=== PATIENT | female | born 1990 | race Caucasian/White ===

== ENCOUNTER → 2018-11-22 | Outpatient (CLI) | payer OTHER, SELFPAY ==
[2018-11-22 20:25] LABS: Chlamydia Trachomatis by PCR Negative (Negative); Neisserai gonorrhoeae by PCR Negative (Negative); Probe Check PASS; Sample Adequacy Control PASS; Specimen Processing Control PASS
[2018-11-28 11:03] LABS: HPV Reflexed? NOT INDICATED
== END | disposition home or self-care (01) ==
PROVIDERS: Referring Provider Obstetrics & Gynecology; Visit Provider Obstetrics & Gynecology
DX: Z11.3 Encounter for screening for infections with a predominantly sexual mode of transmission (principal); Z12.4 Encounter for screening for malignant neoplasm of cervix
CPT/HCPCS: 87491; 87591; 88175; G0145

== ENCOUNTER → 2018-12-11 | Outpatient (CLI) | payer OTHER, SELFPAY ==
[2018-12-11 17:38] LABS: Absolute Neutrophil Count 4.2 X10^3/uL (2.0-7.7); Basophil# 0.01 X10^3/uL; Basophil% 0.2 % (0-1); Eosinophil# 0.04 X10^3/uL; Eosinophils% 0.6 % (0-5); Hematocrit 39.8 % (37-47); Hemoglobin 13.5 g/dl (12.0-15.0); Lymphocyte % 25.1 % (19-41); Mean Corp Hgb Conc 33.9 g/gl (32-36); Mean Corpuscular Hgb 25.8 pg (27.0-32.0); Mean Corpuscular Volume 76.1 fL (81-99); Mean Platelet Vol. 11.8 fl (6.2-12.0); Monocyte% 7.8 % (0-10); Neutrophil # 4.22 X10^3/uL (2.7-7.7); Neutrophil % 66.1 % (47-70); Platelet Count 170 K/mm3 (150-450); RBC Distribution Width SD 38.4 fl (35.1-43.9); Red Blood Count 5.23 M/mm3 (4.2-5.4); White Blood Count 6.4 K/mm3 (4.4-11.0)
[2018-12-11 17:42] LABS: Color, Urine Yellow (Yellow); Glucose, Dipstick Normal (Normal); Ketone-Dipstick Negative (Negative); Leukocyte Esterase-Dipstick Negative /ul (Negative); Nitrite-Dipstick Negative (Negative); Occult Blood-Urine Negative /ul (Negative); Protein-Dipstick Negative (Negative); Urine Bilirubin Dipstick Negative (Negative); Urine Clarity Clear (Clear); Urine Urobilinogen Normal (Normal)
[2018-12-11 17:59] LABS: Amphetamine Urine VISTA NEGATIVE (<1000 ng/mL); Barbiturate Urine VISTA NEGATIVE (< 200 ng/mL); Benzodiazepine Urine VISTA NEGATIVE (< 200 ng/mL); Cocaine Urine VISTA NEGATIVE (< 300 ng/mL); Ecstacy Urine VISTA NEGATIVE (< 500 ng/mL); Methadone Urine VISTA NEGATIVE (< 300 ng/mL); PCP Urine VISTA NEGATIVE (< 25 ng/mL); THC Urine VISTA NEGATIVE (< 50 ng/mL); Vista UDS pH Range 6
[2018-12-11 18:00] LABS: COTININE Drug Screen Negative (<200 ng/mL); POSITIVE COUNT NO; POSITIVE DIFFERENTIAL NO; POSITIVE MORPHOLOGY NO
[2018-12-11 18:17] LABS: Thyroid Stim Hormone (TSH) 1.39 uIU/mL (0.358-3.74)
[2018-12-11 18:46] LABS: HIV - WCH Non-Reactive (Nonreactive); Rubella IgG 17.1 IU/mL
[2018-12-13 15:50] LABS: HEPATITIS B SURFACE AG Negative (Negative); Hep C Antibodies <0.1 s/co ratio (0.0-0.9)
[2018-12-14 02:05] LABS: Prenatal RPR NONREACTIVE (NONREACTIVE)
== END | disposition home or self-care (01) ==
LOC: WOBLAB 16:26
PROVIDERS: Visit Provider Obstetrics & Gynecology
DX: Z34.81 Encounter for supervision of other normal pregnancy, first trimester (principal)
CPT/HCPCS: 36415; 80307; 81002; 84443; 85025; 86703; 86762; 86803; 87340

== ENCOUNTER → 2019-04-02 | Outpatient (CLI) | payer OTHER, SELFPAY ==
[2019-04-02 13:44] LABS: Hematocrit 37.9 % (37-47); Hemoglobin 12.2 g/dL (12.0-15.0); Mean Corp Hgb Conc 32.2 g/dL (32-36); Mean Corpuscular Hgb 26.9 pg (27.0-32.0); Mean Corpuscular Volume 83.5 fL (81-99); Mean Platelet Vol. 11.7 fl (6.2-12.0); Platelet Count 137 K/mm3 (150-450); RBC Distribution Width CV 13.6 % (11.6-14.6); RBC Distribution Width SD 41.5 fl (35.1-43.9); Red Blood Count 4.54 M/mm3 (4.2-5.4)
[2019-04-02 13:46] LABS: Glucose Challenge Gest 1H 50g 102 mg/dL (70-140)
== END | disposition home or self-care (01) ==
LOC: LABSPEC 11:43
PROVIDERS: Visit Provider Obstetrics & Gynecology
DX: Z34.83 Encounter for supervision of other normal pregnancy, third trimester (principal)
CPT/HCPCS: 36415; 82950; 85027

== ENCOUNTER → 2019-05-01 | Outpatient (CLI) | payer OTHER, SELFPAY ==
[2019-05-01 14:24] LABS: Mean Corp Hgb Conc 32.4 g/dL (32-36); Mean Corpuscular Volume 83.1 fL (81-99); Mean Platelet Vol. 11.8 fl (6.2-12.0); Platelet Count 138 K/mm3 (150-450); RBC Distribution Width CV 13.4 % (11.6-14.6); RBC Distribution Width SD 40.2 fl (35.1-43.9); Red Blood Count 4.45 M/mm3 (4.2-5.4); White Blood Count 8.5 K/mm3 (4.4-11.0)
== END | disposition home or self-care (01) ==
LOC: WOBLAB 11:35
PROVIDERS: Visit Provider Obstetrics & Gynecology
DX: D69.6 Thrombocytopenia, unspecified (principal)
CPT/HCPCS: 36415; 85027

== ENCOUNTER → 2019-05-22 | Outpatient (CLI) | payer OTHER, SELFPAY | END | disposition home or self-care (01) | LOC: LABSPEC 14:16 | PROVIDERS: Visit Provider Obstetrics & Gynecology | DX: Z36.85 Encounter for antenatal screening for Streptococcus B (principal) | CPT/HCPCS: 87081 ==

== ENCOUNTER → 2019-06-03 | Outpatient (CLI) | payer OTHER, SELFPAY ==
[2019-06-03 12:07] LABS: Hematocrit 36.8 % (37-47); Hemoglobin 11.7 g/dL (12.0-15.0); Mean Corp Hgb Conc 31.8 g/dL (32-36); Mean Corpuscular Hgb 26.2 pg (27.0-32.0); Mean Corpuscular Volume 82.5 fL (81-99); Mean Platelet Vol. 11.8 fl (6.2-12.0); Platelet Count 133 K/mm3 (150-450); RBC Distribution Width CV 13.9 % (11.6-14.6); RBC Distribution Width SD 40.9 fl (35.1-43.9); Red Blood Count 4.46 M/mm3 (4.2-5.4); White Blood Count 8.4 K/mm3 (4.4-11.0)
[2019-06-03 12:14] LABS: Prothrombin Time (Protime)PT. 13.1 SECONDS (11.7-14.9)
[2019-06-03 12:15] LABS: Partial Thromboplast Time 27.5 Seconds (24.1-36.2)
[2019-06-03 12:27] LABS: AST(SGOT) 15 U/L (15-37); Alanine Aminotransfer ALT/SGPT 17 U/L (13-56); Creatinine, Serum 0.56 mg/dL (0.55-1.02); EST Glomerular Filtration Rate 138 mL/min (>60); Est Glom Filt Rate - Afr Amer 167 mL/min (>60); Uric Acid 2.9 mg/dL (2.6-6.0)
[2019-06-03 12:30] LABS: Protein, Urine (Random) 10.7 mg/dL (<11.9); Protein:Creat Ratio 162 mg/g CRE (0-200)
== END | disposition home or self-care (01) ==
PROVIDERS: Visit Provider Obstetrics & Gynecology
DX: O13.9 Gestational [pregnancy-induced] hypertension without significant proteinuria, unspecified trimester (principal); Z3A.00 Weeks of gestation of pregnancy not specified
CPT/HCPCS: 36415; 82565; 82570; 84156; 84450; 84460; 84550; 85027; 85610; 85730

== ENCOUNTER → 2019-06-05 | Outpatient (CLI) | payer OTHER, SELFPAY ==
[2019-06-05 08:56] LABS: 24HR. UA Prot. Total Volume 2950 mL; Urine Protein (24 Hour) 10.2 mg/dL (<11.9)
== END | disposition home or self-care (01) ==
LOC: LAB.FUTURE 06-07 12:00
PROVIDERS: Visit Provider Obstetrics & Gynecology
DX: O13.9 Gestational [pregnancy-induced] hypertension without significant proteinuria, unspecified trimester (principal); Z3A.00 Weeks of gestation of pregnancy not specified
CPT/HCPCS: 81050

== ENCOUNTER 2019-06-25 14:15 | Inpatient (IN) | payer OTHER, SELFPAY ==
[2019-06-25 14:37] VITALS: BMI 44.3
[2019-06-25] MEDS: 0.9% Saline Lock 10 ML Syringe IV (15:00)
[2019-06-25] MEDS: miSOPROStol 25 MCG TABLET PO ×3 (15:21→23:43)
[2019-06-25 15:27] LABS: Absolute Lymphocyte Count 1.34 X10^3/uL (0.83-4.51); Absolute Neutrophil Count 5.7 X10^3/uL (2.0-7.7); Basophil# 0.02 X10^3/uL; Basophil% 0.3 % (0-1); Eosinophil# 0.03 X10^3/uL; Eosinophils% 0.4 % (0-5); Hemoglobin 11.9 g/dL (12.0-15.0); Lymphocyte # 1.34 X10^3/ul (4.0); Lymphocyte % 17.2 % (19-41); Mean Corp Hgb Conc 33.1 g/dL (32-36); Mean Corpuscular Hgb 26.6 pg (27.0-32.0); Mean Corpuscular Volume 80.4 fL (81-99); Mean Platelet Vol. 11.8 fl (6.2-12.0); Monocyte# 0.62 X10^3/uL; NRBC Flagged by Analyzer 0 % (0-5); Neutrophil % 73.1 % (47-70); Platelet Count 135 K/mm3 (150-450); RBC Distribution Width CV 14.2 % (11.6-14.6); RBC Distribution Width SD 41.5 fl (35.1-43.9); Red Blood Count 4.48 M/mm3 (4.2-5.4); White Blood Count 7.8 K/mm3 (4.4-11.0)
--- NOTE | 2019-06-25 15:41 | HP.PCM_ITS ---
History and Physical Date of Admission: 06/25/19 OB HISTORY AND PHYSICAL EXAMINATION History of this : 28 yo female Ab0 with EDC 06/18/2019 by 13 weeks 0 days Ultrasound, presents to Labor and Delivery for induction of labor postdates with unfavorable cervix. care remarkable for: GBS negative. Rubella immune. A positive. 1.) Mild thrombocytopenia. Plts 137 K at 29 wks 135K on admission to [facility] for labor Pertinent Past Medical History: Breast/Ovarian/Colon Cancers - Denies Infections - Chicken pox, vaccinated for chicken pox and no HPV Vaccinated for Hepatitis B. Illnesses - none Accidents - None History of Abnormal PAPS - Denies Hospitalizations - [facility], hernia surgery as child SURGICAL HISTORY: 1. hernia surgery as child 2. skin grafts 2001 3. [place] Teeth Removal MENSTRUAL HISTORY: LMP Known?- Definite/Duration - 3-4 days, Regularity - Regular, Frequency - monthly days, LMP - 09/11/18, Age Onset Menarche - 13 PAST PREGNANCIES: Total Pregnancies - 1; Full Term Pregnancies - 0; Premature - 0; Abortions, Induced - 0; Abortions, Spontaneous - 0; Ectopics - 0; Multiple Births - 0; Living Children - 0 FAMILY HISTORY: Maternal Grandparent - Hypertension; Maternal Grandparent - Asthma; Maternal Grandparent - Unknown Disease; SOCIAL HISTORY: Alcohol Use - drinks occasionally not while Smoking - denies smoking Diet - no special diet Lifestyle - Exercise - minimal Seat Belt Use - always Employer - [employer] Job Description - [employer] Illicit Drug Use - denies use of street drugs Sexual Activity - Residence - Own Hours Worked - FT Spouse-Sig Other Name - Jose Luis Spouse-Sig Other Occupation - [employer] - Allergies: No Known Drug Allergies Medications: During - 28 mg-800 mcg tablet; Tums 300 mg (750 mg) chewable tablet Review of Systems: Non-contributory PHYSICAL EXAMINATION General Appearance: 28 yo female in no acute distress Vital Signs: AF, VSS Heart: RRR without rubs or gallops Lungs: Regular rate and rhythm Breasts: deferred Abdomen: gravid Cervix: 1-2/thick/high/anterior Presentation: cephalic Size: AGA -- EFW on sono today: 6# 11 oz. KENDRA 12 cm. Movement: present Heart: 130-140s avg variability Accels Category I tracing, very irregular to no UCs. Impression /Plan: Intrauterine . Postdates 41 wk induction of labor. Counselled re R,B,A of induction. Aware of potential for intolerance of labor or CPD or failure to progress as indications for C section. Short stature, mother with hx of all C sections. Will begin with Cytotec induction. Advised may require Fole y bulb with Pitocin as next step. Amniotomy prn. Watch progress, descent and tolerance of labor. . All questions answered and admitted for induction of labor.
[2019-06-25] MEDS: Acetaminophen 325 MG Tablet PO ×2 (18:49→23:45)
--- NOTE | 2019-06-26 | PLAC_PTH ---
PATIENT: MARYANN BULLOCK LOC: [facility] U#:[id number] AGE/SX: 28/F ROOM: WP018 RE06/25/[address]: Dr. Lisa Mays MD : 1990 BED: 1 DIS: 06/28/2019 SPEC #: [id number] RECD: 06/27/19 10:34 STATUS: JANNETH REQ #: [id number] MEGAN: 06/26/19 00:[address]: Lisa Ordaz DEPT: SURGICAL PATHOLOGY RECD BY: Fidencio Do ENTERED: 06/27/19 10:34 SP TYPE: PLACENTA OTHR DR: No Primary Care Phys Tissues: Placenta, NOS Procedures: Surgery Specimen Level V HEADER OPERATION: Vaginal delivery PRE-OP DIAGNOSIS: , prolonged rupture of membranes TISSUE SUBMITTED: Placenta MICROSCOPIC DIAGNOSIS Sewell placenta (496 g) Umbilical cord - trivascular without inflammation. Placental membranes - no pathologic change. Placental disc - foci of organizing intraparenchymal hemorrhage, mild Lilliana-Raheel change and mildly increased intraparenchymal fibrin plaque. AM:jet 07/01/19 MICROSCOPIC DESCRIPTION Slides are reviewed. GROSS DESCRIPTION SPECIMEN: PLACENTA / CLINICAL INFORMATION: A. Weight: 3.317 kg B. Gestational Age: 41 weeks C. Sex: Male PLACENTAL WEIGHT (POST FIXATION): PLACENTAL DIMENSIONS: 17 x 16 x 3 cm PLACENTAL SHAPE: Usual ovoid PLACENTAL WEIGHT FOR GESTATIONAL AGE: Within 10-99th percentile:496g MEMBRANES - Present A. Insertion: Marginal B. Site of rupture from edge: at edge of placental disc C. Color of membrane: Soria-holliday D. Abnormalities: None UMBILICAL CORD - Present A. Color: Soria-holliday B. Insertion: Marginal C. Length: eccentric, 25 cm D. Diameter: 1.2 cm E. Number of vessels: Three F. Abnormalities: None PLACENTAL DISC - Present A. Color of surface: Soria-holliday B. surface abnormalities: None C. Maternal cotyledons: Intact with minimal tears D. Attached retro placental clot: No clot E. Cut surface: Dark red and spongy with two soria-white lesions measuring in size from 1 cm to 2 cm F. Separate clot: Present, 9 x 3 x 2 cm SECTIONS SUBMITTED: 1. Umbilical cord ( end inked) 2. Membrane roll 3. Lesions. 4. Lesions. 5. Uninvolved placental disc AM:jet 06/28/19 TC: 5 CPT: 44941
--- NOTE | 2019-06-26 03:13 | PCM.PN.BLA ---
Progress Note LABOR PROGRESS NOTE. Late entry from 06/25/19 at approx 7:30 pm Comfortable in bed watching movie. States occasional cramp noted. No c/o AVSS S/P second dose Cytotec with cervix at 1 cm / -3 / anterior per RN EFM 130-140s avg variability. Category I tracing UCs irregular A/P: 41 wk induction. Strong family hx of all C section deliveries. Short stature. Unfavorable cervix. Cytotec to possible Hogue bulb and AROM, pitocin planned. Continue induction for postdates
--- NOTE | 2019-06-26 03:16 | PCM.PN.BLA ---
Progress Note LABOR PROGRESS NOTE 41 1/7 wk induction postdated UCs q 1-3 min Per RN note, pt sleeping through UCs. EFM 120-130s with min to avg variability Accels to 150s Category I tracing A/P: 41 1/7 wk induction postdates. Plan for exam, AROM if able and IUPC, Pitocin vs Hogue bulb Pitocin in AM
[2019-06-26] MEDS: miSOPROStol 25 MCG TABLET PO (03:29)
[2019-06-26] MEDS: 0.9% Saline Lock 10 ML Syringe IV (06:51)
[2019-06-26] MEDS: Acetaminophen 325 MG Tablet PO (07:50)
[2019-06-26] MEDS: Lactated Ringers 1,000 ML 50 ML IV (08:17)
[2019-06-26] MEDS: Oxytocin 30 units/NS 500 ml 30 UNITS/500 ML IV.SOLN IV (08:26)
--- NOTE | 2019-06-26 08:43 | PCM.PN.BLA ---
Progress Note LABOR PROGRESS NOTE Last dose of Cytotec at 4 am. Due for next, but will cancel that. Able to sleep through the night with UCs. Feeling only a few strongly. AVSS EFM: 130-140s avg variability. Accels. UCs q 2-3 min CX: 09/17/ high anterior mod consistency. A/P: 41 1/7 wk Induction. S/P Cytotec and now to Hogue bulb and pitocin Continue labor. Watch tolerance and for progress. AROM as able. High chance of C Section with family hx and her own body habitus.
[2019-06-26] MEDS: Nalbuphine 10 MG/ML Ampul IV (11:56)
--- NOTE | 2019-06-26 12:34 | PCM.PN.BLA ---
Progress Note LABOR PROGRESS NOTE Hogue fell out, SROM then with BBOW. Epidural placed. Comfortable and sleeping with epidural Multiple family members in room, talking AVSS Pitocin at 6 mIU/min IUPC and scalp lead placed after SROM IFM : 130-140s avg variability Accels noted. Category I tracing UCs q 1-5 min coupling, spacing CX: 4 / 70/-2 SROM A/P: 41 1/7 wk EGA Induction of labor. Cytotec, Hogue bulb, pitocin with progress noted. Continue labor induction Watch progress, descent.
[2019-06-26] MEDS: Ondansetron 4 MG/2 ML Vial IV (14:50)
[2019-06-26] MEDS: Lactated Ringers 500 ML 999 ML IV (17:15)
[2019-06-26 18:05] LABS: Absolute Lymphocyte Count 0.99 X10^3/uL (0.83-4.51); Basophil# 0.04 X10^3/uL; Basophil% 0.3 % (0-1); Hematocrit 37.7 % (37-47); Hemoglobin 12.3 g/dL (12.0-15.0); Lymphocyte # 0.99 X10^3/ul (4.0); Lymphocyte % 6.6 % (19-41); Mean Corp Hgb Conc 32.6 g/dL (32-36); Mean Corpuscular Hgb 26.1 pg (27.0-32.0); Mean Corpuscular Volume 79.9 fL (81-99); Mean Platelet Vol. 11.1 fl (6.2-12.0); Monocyte# 0.93 X10^3/uL; Monocyte% 6.2 % (0-10); NRBC Flagged by Analyzer 0 % (0-5); Neutrophil # 12.97 X10^3/uL (2.7-7.7); Neutrophil % 86.4 % (47-70); Platelet Count 125 K/mm3 (150-450); RBC Distribution Width CV 13.9 % (11.6-14.6); RBC Distribution Width SD 40.6 fl (35.1-43.9); Red Blood Count 4.72 M/mm3 (4.2-5.4)
[2019-06-26] MEDS: fentaNYL-bupivacaine (epidural) 100 ML BAG EPIDURAL (18:38)
[2019-06-26] MEDS: Oxytocin 30 units/NS 500 ml 30 UNITS/500 ML IV.SOLN 334 UNITS IV (20:27)
--- NOTE | 2019-06-26 21:52 | PCM.OPRPT ---
Problem List (1) 41 weeks gestation of Status: Acute (2) (spontaneous vaginal delivery) Status: Acute Vaginal Delivery Maternal Presentation: Medically Indicated Induction Method of Induction: Pitocin, Hogue Bulb, Cytotec Medical Reason for Induction: Post term Amniotic Membrane Rupture Type: Spontaneous Rupture of Membrane time: 06/26/19 1124h Amniotic Fluid Description: Clear Final FELTON: 06/18/19 Final FELTON Source: US <20 weeks Gestational age: 41 Weeks and 1 Days Date of Procedure: 06/26/19 Pre-Operative Diagnosis: 41 1/7wga Post-Operative Diagnosis: 41 1/7wga Surgery/ Procedure Performed: Spontaneous Vaginal Delivery Anesthesiologist: Jose Luis Gutierrez Type of Anesthesia: Epidural Description of Procedure: Patient was FD/+4. Pushed to deliver a vigorous male infant with ease. was placed on maternal abdomen and further attended by nursery personnel. The cord was doubly clamped and cut. Placenta delivered spontaneously and appeared intact on inspection. A second degree perineal laceration was repaired with 3-0 Vicryl Rapide following local administration of 5cc of 1% lidocaine for patient discomfort. Sponge counts correct x 2. Presentation: Vertex Placental Delivery Description: Spontaneous Placenta Disposition: Sent to Pathology Cord Vessel Description: 3 Vessels Cord Entanglement: None Estimated Blood Loss: 300 ml A gender: Male (1 minute): 8 (5 minute): 9 Episiotomy Description: None Laceration: Midline, 2nd degree Medications given after delivery: IV Pitocin Complications: None
--- NOTE | 2019-06-26 22:07 | DCINST_ITS ---
Discharge Diet: No Restrictions Discharge Activity: Return to Normal Activity, May Shower, May Take a Tub Bath May resume sexual activity in: 6 weeks Lifting Restrictions: 10lb Suture Line Care: Avoid Pulling/Pushing Cleanse incision/area with: Soap & Water Additional Instructions: If you experience any of the following, contact your healthcare provider. * Bleeding that soaks a pad every hour for 2 hours * Fever 100.4 or higher * Unrelieved incision or abdominal pain * Swelling, redness, discharge or bleeding from your incision or episiotomy site * Your incision begins to separate * Problems urinating (including inability to urinate or burning while urinating). * Visual changes * Severe headache * Flu-like symptoms * Pain or redness in one of both of your breasts * Pain, warmth, tenderness or swelling in your legs, especially the calf area * Frequent nausea and vomiting * Symptoms of depression or anxiety If you experience any of the following, call 911 or go to the nearest Emergency Room. * Chest pain * Problems breathing * Seizure activity * Partial or complete paralysis of a body part, slurred speech, weakness or drooping of the face, or a sudden inability to walk or hold your balance Allergies/Adverse Reactions: Allergies No Known Allergies Allergy (Verified 06/25/19 14:37) Medications to take at Discharge Pnv No.103/Folic/Om3s/Fish Oil [ Gummies] 2 ea PO DAILY 06/25/19 Docusate Sodium [Colace] 100 mg PO BID PRN PRN #60 cap 06/26/19 Ibuprofen 600 mg PO TID PRN #30 tab 06/26/19 The following prescriptions were given: Docusate Sodium [Colace] 100 mg PO BID PRN PRN #60 cap PRN Reason: Constipation Transmission Status: Pending to [facility] #[facility] Ibuprofen 600 mg PO TID PRN #30 tab PRN Reason: Pain Or Fever Transmission Status: Pending to [facility] #[facility] Please Follow Up With: Lisa Edwards MD When: 6 weeks Primary Care Physician: Care Physician,No Primary [Primary Care Provider] - Test Results: Test results from this visit will be discussed in further detail at your follow- up appointment, if applicable.
[2019-06-27] VITALS (7 sets, daily range): BP systolic 108–125; BP diastolic 58–71; PULSE 80–88; RESP 16–18; TEMP 36–37.3; O2SAT 98
[2019-06-27 04:05] LABS: Pathology Specimen OB SEE PATHOLOGY REPORT
[2019-06-27] MEDS: Acetaminophen 325 MG Tablet PO ×3 (05:19→19:59)
--- NOTE | 2019-06-27 08:17 | PCM.PN.OB ---
Patient Problems: Active and Suspected Problems 41 weeks gestation of (Acute) (spontaneous vaginal delivery) (Acute) Subjective: PPD#1 Doing well. Plans to nurse. Minimal pain. Happy with delivery and her baby. - Physical Exam Vitals/I&O's: Vital Signs Temp Pulse Resp BP 99.1 F 88 18 125/71 H 06/27/19 05:15 06/27/19 05:15 06/27/19 05:15 06/27/19 05:15 Oxygen Delivery Method Room Air Weight: 102.9 kg Body Mass Index (BMI) 44.3 Intake and Output for Last 24 Hours 06/25/19 06/26/19 06/27/19 23:59 23:59 23:59 Intake Total 2600.86 / 2600.86 Output Total 1400 / 1400 1200 / 1200 Balance 1200.86 / 1200.86 -1200 / -1200 General: Alert, Oriented x3, Cooperative, No apparent distress HEENT: Atraumatic, EOMI Neck: Supple Abdomen: Soft - Fundus firm NT inferior to umbilicus Psych/Mental Status: Normal Affect Laboratory Results 06/26/19 17:20: WBC Cancelled, Corrected WBC Cancelled, RBC Cancelled, Hgb Cancelled, Hct Cancelled, MCV Cancelled, MCH Cancelled, MCHC Cancelled, RDW Std Deviation Cancelled, RDW Coeff of Alexandro Cancelled, Plt Count Cancelled, MPV Cancelled, Immature Gran % (Auto) Cancelled, Neut % (Auto) Cancelled, Lymph % (Auto) Cancelled, Duchesne % (Auto) Cancelled, Eos % (Auto) Cancelled, Baso % (Auto) Cancelled, Absolute Neuts (auto) Cancelled, Absolute Lymphs (auto) Cancelled, Total Counted Cancelled, Neutrophils % (Manual) Cancelled, Band Neutrophils % Cancelled, Lymphocytes % (Manual) Cancelled, Monocytes % (Manual) Cancelled, Eosinophils % (Manual) Cancelled, Basophils % (Manual) Cancelled, Metamyelocytes % Cancelled, Myelocytes % Cancelled, Promyelocytes % Cancelled, Blast Cells % Cancelled, Plasma Cell % (Manual) Cancelled, Other Cells % Cancelled, Nucleated RBC % Cancelled, Nucleated RBCs/100 WBC Cancelled, Differential Comment Cancelled, Diff Path Review Cancelled, Hypersegmented Neuts Cancelled, Atypical Lymphocytes Cancelled, Reactive Lymphocytes Cancelled, Smudge Cells Cancelled, Toxic Granulation Cancelled, Toxic Vacuolation Cancelled, Dohle Bodies Cancelled, Andra Rods Cancelled, Platelet Estimate Cancelled, Plt Morphology Comment Cancelled, RBC Morphology Cancelled, Polychromasia Cancelled, Hypochromasia Cancelled, Poikilocytosis Cancelled, Basophilic Stippling Cancelled, Anisocytosis Cancelled, Microcytosis Cancelled, Macrocytosis Cancelled, Spherocytes Cancelled, Sickle Cells Cancelled, Target Cells Cancelled, Tear Drop Cells Cancelled, Ovalocytes Cancelled, Stomatocytes Cancelled, Barreto-Confluence Bodies Cancelled, Blanket Cells Cancelled, Bite Cells Cancelled, Crenated Cell Cancelled, Acanthocytes (Spur) Cancelled, Rouleaux Cancelled, Schistocytes Cancelled 06/26/19 17:55: WBC 15.0 H, RBC 4.72, Hgb 12.3, Hct 37.7, MCV 79.9 L, MCH 26.1 L, MCHC 32.6, RDW Std Deviation 40.6, RDW Coeff of Alexandro 13.9, Plt Count 125 L, MPV 11.1, Immature Gran % (Auto) 0.500, Neut % (Auto) 86.4 H, Lymph % (Auto) 6.6 L, Duchesne % (Auto) 6.2, Eos % (Auto) 0.0, Baso % (Auto) 0.3, Absolute Neuts (auto) 13.0 H, Absolute Lymphs (auto) 0.99, Nucleated RBC % 0 Current Medications Acetaminophen (Tylenol) 325 - 650 mg PO Q4H PRN PRN PRN Reason: Pain Score 1-3/10 Last Admin: 06/27/19 05:19 Dose: 650 mg Documented by: Bisacodyl (Dulcolax) 10 mg RECTAL UD PRN PRN Reason: If no BM Dibucaine (Dibucaine) 1 applic TOPICAL TID PRN PRN; Protocol PRN Reason: Discomfort Hydrocortisone (Hytone) 1 applic TOPICAL TID PRN PRN; Protocol PRN Reason: Discomfort Methylergonovine Maleate (Methergine) 0.2 mg IM X1 PRN PRN Reason: Excess bleeding/uterine atony Multivit/Folic Acid/Iron (Prenatabs Fa) 1 tablet PO DAILY@1200 STEFANIA Senna/Docusate Sodium (Senokot-S, Virginie-Colace) 1 - 2 tablet PO DAILY PRN PRN PRN Reason: Constipation Simethicone (Mylicon) 80 mg PO PCHS PRN PRN Reason: Indigestion/Stomach pain Sodium Chloride () 5 - 15 ml IV UD PRN PRN Reason: SALINE FLUSH Medical Necessity - Tobacco Use Smoking Status: Never smoker Assessment/Plan All Active Problems 41 weeks gestation of (Acute) (spontaneous vaginal delivery) (Acute) PPD#1 Stable pp. Continue routine care.
[2019-06-27] MEDS: Prenatal Vits Tablet 1 TABLET PO (09:25)
[2019-06-27] MEDS: Ibuprofen 600 MG Tablet PO ×2 (09:25→18:39)
[2019-06-27] MEDS: Senna/Docusate Sodium 1 Tablet PO ×2 (15:59→19:59)
[2019-06-28 02:00] VITALS: BP 117/79; PULSE 77; RESP 16; TEMP 36.6; O2SAT 97
--- NOTE | 2019-06-28 08:24 | PCM.PN.OB ---
Patient Problems: Active and Suspected Problems 41 weeks gestation of (Acute) (spontaneous vaginal delivery) (Acute) Subjective: PPD#2 Doing well. Baby circumcision done and has bili levels to do yet Minimal pain at perineum. Nursing well. Dischg home today. RTO in 6 wk for pp check. Objective: Sitting up semi-recumbent on couch. Eating breakfast - Physical Exam Vitals/I&O's: Vital Signs Temp Pulse Resp BP Pulse Ox 97.8 F 77 16 117/79 97 06/28/19 02:00 06/28/19 02:00 06/28/19 02:00 06/28/19 02:00 06/28/19 02:00 Oxygen Delivery Method Room Air Weight: 102.9 kg Body Mass Index (BMI) 44.3 Intake and Output for Last 24 Hours 06/26/19 06/27/19 06/28/19 23:59 23:59 23:59 Intake Total 2600.86 / 2600.86 Output Total 1400 / 1400 1200 / 1200 Balance 1200.86 / 1200.86 -1200 / -1200 General: Alert, Oriented x3, Cooperative, No apparent distress HEENT: Atraumatic, EOMI Neck: Supple Neurological: Cranial nerves II-XII grossly intact Psych/Mental Status: Normal Affect Current Medications Acetaminophen (Tylenol) 325 - 650 mg PO Q4H PRN PRN PRN Reason: Pain Score 1-3/10 Last Admin: 06/27/19 19:59 Dose: 650 mg Documented by: Bisacodyl (Dulcolax) 10 mg RECTAL UD PRN PRN Reason: If no BM Dibucaine (Dibucaine) 1 applic TOPICAL TID PRN PRN; Protocol PRN Reason: Discomfort Hydrocortisone (Hytone) 1 applic TOPICAL TID PRN PRN; Protocol PRN Reason: Discomfort Ibuprofen (Motrin) 600 mg PO Q6H PRN PRN PRN Reason: Pain Score 1-10/10 Last Admin: 06/27/19 18:39 Dose: 600 mg Documented by: Methylergonovine Maleate (Methergine) 0.2 mg IM X1 PRN PRN Reason: Excess bleeding/uterine atony Multivit/Folic Acid/Iron (Prenatabs Fa) 1 tablet PO DAILY@1200 STEFANIA Last Admin: 06/27/19 09:25 Dose: 1 tablet Documented by: Senna/Docusate Sodium (Senokot-S, Virginie-Colace) 1 - 2 tablet PO DAILY PRN PRN PRN Reason: Constipation Last Admin: 06/27/19 19:59 Dose: 1 tablet Documented by: Simethicone (Mylicon) 80 mg PO PCHS PRN PRN Reason: Indigestion/Stomach pain Sodium Chloride () 5 - 15 ml IV UD PRN PRN Reason: SALINE FLUSH Medical Necessity - Tobacco Use Smoking Status: Never smoker Assessment/Plan All Active Problems 41 weeks gestation of (Acute) (spontaneous vaginal delivery) (Acute) PPD#2 Stable pp. Discharge home. RTO in 6 wk for pp check , prn sooner.
[2019-06-28] MEDS: Acetaminophen 325 MG Tablet PO (08:56)
[2019-06-28] MEDS: Prenatal Vits Tablet 1 TABLET PO (08:59)
[2019-06-28 09:00] VITALS: BP 122/70; PULSE 103; RESP 18; TEMP 37; O2SAT 97
== END 2019-06-28 11:44 | disposition home or self-care (01) | DRG 807 ==
PROVIDERS: Obstetrics & Gynecology; Admitting Provider Obstetrics & Gynecology; Referring Provider Obstetrics & Gynecology; Visit Provider Obstetrics & Gynecology
DX: O48.0 Post-term pregnancy (principal); Z37.0 Single live birth; Z3A.41 41 weeks gestation of pregnancy; O70.1 Second degree perineal laceration during delivery
CPT/HCPCS: 59025; 59050; 85025; 86850; 86900; 86901; 88307; 99218; J7120; A4216; G0378; J2405

== ENCOUNTER → 2019-07-04 19:00 | Outpatient (CLI) | payer OTHER, SELFPAY ==
[2019-06-25 14:37] VITALS: BMI 44.3
== END ==
PROVIDERS: Referring Provider Obstetrics & Gynecology; Visit Provider Obstetrics & Gynecology
DX: N61.0 Mastitis without abscess (principal)
CPT/HCPCS: 96152

== ENCOUNTER → 2019-07-05 19:30 | Outpatient (CLI) | payer OTHER, SELFPAY ==
[2019-06-25 14:37] VITALS: BMI 44.3
== END ==
PROVIDERS: Referring Provider Obstetrics & Gynecology; Visit Provider Obstetrics & Gynecology
DX: N61.0 Mastitis without abscess (principal)
CPT/HCPCS: 96152